=== PATIENT | male | born 1975 | race Caucasian/White ===

== ENCOUNTER 2016-07-05 18:00 | Emergency (ER) | payer BC ==
--- NOTE | ~2016-07-05 | CR21 ---
[facility] A Service of [facility] & [facility] RADIOLOGY TEXT RESULTS PATIENT: MANDY RAPHAEL LOCATION: [facility] : 71 UNIT #: [id number] AGE: [address]: Josh Trotter MD SEX: M ORDER DR: [id number] [facility] [address] [place], [place] [address] [id number] E MR#: [id number] Acc #: [id number] NAME: MANDY RAPHAEL : 1975 SEX: M STUDY DATE/TIME: 07/05/2016 18:38 UNIT: [facility] ROOM: STUDY DESCRIPTION: CR Ankle Min 3 Views Rt Attending Physician: Josh Trotter M.D. Ordering Physician: Josh Trotter M.D. Primary Care Physician: Primary Care Physician No MEDICAL IMAGING REPORT This report is preliminary unless electronic signature is present EXAM Right ankle, 3 views HISTORY Ankle pain after fall today. FINDINGS 3 views of the right ankle demonstrate complex ankle fracture dislocation. There is a comminuted oblique fracture of the distal fibular shaft 10 cm from the tip of the lateral malleolus with 1 cm lateral displacement of the distal fracture fragment and approximately 45 degrees anterior angulation of the fracture apex. There is an oblique fracture through the posterior malleolus with approximately 2 cm separation of the fracture fragment, and there is approximately 3.5 cm anteromedial dislocation of the tibia relative to the talus. There is also an oblique fracture through the base of the medial malleolus with approximately 2 cm separation of the fracture fragment. Approximately 30 degrees valgus angulation of the ankle at the tibiotalar junction. Dictated by... José Mcfarlane M.D. THIS IS AN ELECTRONICALLY VERIFIED REPORT José Mcfarlane M.D. at 07/05/2016 10:25 PM DFL/psc TD: 07/05/2016 21:46 JOB #: [id number] MEDICAL IMAGING REPORT Page 1 of 1 COPY
--- NOTE | ~2016-07-05 | CR18 ---
[facility] A Service of [facility] RADIOLOGY TEXT RESULTS PATIENT: MANDY RAPHAEL LOCATION: [facility] : 71 UNIT #: [id number] AGE: [address]: Josh Trotter MD SEX: M ORDER DR: [id number] [facility] [address]. [place], [place] [address] [id number] E MR#: [id number] Acc #: [id number] NAME: MANDY RAPHAEL : 1975 SEX: M STUDY DATE/TIME: 07/05/2016 20:15 UNIT: [facility] ROOM: STUDY DESCRIPTION: CR Ankle 2 Views Rt Attending Physician: Josh Trotter M.D. Ordering Physician: Josh Trotter M.D. Primary Care Physician: Primary Care Physician No MEDICAL IMAGING REPORT This report is preliminary unless electronic signature is present EXAM Right ankle, 07/05/2016 INDICATION Post reduction imaging from a fracture that occurred today. TECHNIQUE 2 views of the right ankle. No comparisons. FINDINGS There is overlying cast material artifact. There has been interval significant improvement of alignment in the complicated fracture dislocation of the right ankle. When compared to the prior study, there has been significant improvement in anatomic alignment of the medial malleolus and the lateral malleolus. A posterior malleolar fragment is also present and appears to be in improved anatomic alignment. There has been interval reduction of the dislocation. There is diffuse soft tissue swelling. IMPRESSION Significant interval improvement in anatomic alignment of the fracture dislocation of the trimalleolar fracture of the right ankle described previously. There has been reduction of the dislocation. The medial and lateral malleoli appear to be in much better alignment than on the prior study. Soft tissue swelling. Dictated by... Rey Gutiérrez M.D. THIS IS AN ELECTRONICALLY VERIFIED REPORT Rey Gutiérrez M.D. at 07/05/2016 10:52 PM [facility] A Service of [facility] RADIOLOGY TEXT RESULTS PATIENT: MANDY RAPHAEL LOCATION: [facility] : 71 UNIT #: [id number] AGE: [address]: Josh Trotter MD SEX: M ORDER DR: BRAYDON/margarita TD: 07/05/2016 22:34 JOB #: [id number] MEDICAL IMAGING REPORT Page 1 of 1 COPY
--- NOTE | ~2016-07-05 | CR253 ---
[facility] A Service of [facility] & [facility] RADIOLOGY TEXT RESULTS PATIENT: MANDY RAPHAEL LOCATION: [facility] : 71 UNIT #: [id number] AGE: [address]: Josh Trotter MD SEX: M ORDER DR: [id number] [facility] [address]. [place], [place] [address] [id number] E MR#: [id number] Acc #: [id number] NAME: MANDY RAPHAEL : 1975 SEX: M STUDY DATE/TIME: 07/05/2016 18:35 UNIT: [facility] ROOM: STUDY DESCRIPTION: CR Tibia and Fibula 2 Views Rt Attending Physician: Josh Trotter M.D. Ordering Physician: Josh Trotter M.D. Primary Care Physician: Primary Care Physician No MEDICAL IMAGING REPORT This report is preliminary unless electronic signature is present EXAM Right tibia and fibula, AP and lateral HISTORY Leg pain after fall today. FINDINGS 3 views of the right tibia and fibula demonstrate oblique fracture through the distal fibular diaphysis approximately 10 cm from the tip of the lateral malleolus with 1 cm lateral displacement of the distal fracture fragment and 2 cm overriding of the proximal and distal fracture fragments. There is 45 degrees anterior angulation of the fracture apex. There is also an oblique fracture through the posterior malleolus with 3.5 cm anteromedial dislocation of the tibia relative to the talus. There is also an oblique fracture through the medial malleolus, with approximately 2 cm separation of the fracture fragment. Nearly 30 degrees valgus angulation of the ankle joint. IMPRESSION 1. Oblique fracture of the distal fibular diaphysis approximately 10 cm from the tip of the lateral malleolus with approximately 1 cm lateral displacement of the distal fracture fragment and 45 degrees anterior angulation of the fracture apex. 2. Oblique fracture through the posterior malleolus, with approximately 2 cm separation of the fracture fragment and 3.5 cm anteromedial dislocation of the tibia relative to the talus. 3. Oblique fracture through the base of the medial malleolus with approximately 2 cm separation of the fracture fragment. 4. Approximately 30 degrees valgus angulation of the ankle joint at the tibiotalar junction. [facility] A Service of [facility] & [facility] RADIOLOGY TEXT RESULTS PATIENT: MANDY RAPHAEL LOCATION: [facility] : 71 UNIT #: [id number] AGE: [address]: Josh Trotter MD SEX: M ORDER DR: Dictated by... José Mcfarlane M.D. THIS IS AN ELECTRONICALLY VERIFIED REPORT José Mcfarlane M.D. at 07/05/2016 10:25 PM DFL/fabian TD: 07/05/2016 21:40 JOB #: [id number] MEDICAL IMAGING REPORT Page 1 of 1 COPY
[~2016-07-05 18:00] MED LIST: CIPRODEX OTIC7.5 ML AD; CORTISPORIN-TC10 ML OT; DARVOCET-N 1001 TAB PO; GENOPTIC5 ML OP; ILOTYCIN OINTMENT; LEVAQUIN PO; NAPROXEN PO; PHENERGAN PO; ULTRAM PO
== END 2016-07-05 21:05 | disposition home or self-care (01) ==
LOC: CED 18:00 → CFTX 18:22 → CED 18:22
DX: S82.831A Other fracture of upper and lower end of right fibula, initial encounter for closed fracture (principal); S82.841A Displaced bimalleolar fracture of right lower leg, initial encounter for closed fracture; W19.XXXA Unspecified fall, initial encounter; Y92.009 Unspecified place in unspecified non-institutional (private) residence as the place of occurrence of the external cause
CPT/HCPCS: 27762; 73590; 73600; 73610; 96374; 99152; 99283; J1170; J3010